=== PATIENT | male | born 1950 | race Caucasian/White ===

== ENCOUNTER 2020-05-25 16:09 | Outpatient (CLI) | payer MEDICARE, OTHER, SELFPAY ==
--- NOTE | 2020-05-25 16:19 | XRR_ITS ---
PROCEDURE INFORMATION: Exam: XR Chest, 2 Views Exam date and time: 05/25/2020 4:26 PM Age: 69 years old Clinical indication: Condition or disease; Lung condition and disease; Other: Pulmonary sarcoidosis TECHNIQUE: Imaging protocol: XR of the chest Views: 2 views. COMPARISON: No relevant prior studies available. FINDINGS: Lungs: There is a parenchymal density present in the right middle lobe lateral segment consistent with pneumonia Pleural space: Unremarkable. No pleural effusion. No pneumothorax. Heart/Mediastinum: Unremarkable. No cardiomegaly. Bones/joints: Unremarkable. XR/XR chest 2V* [id number] IMPRESSION: Right middle lobe pneumonia Otherwise negative chest examination
[2020-05-25 17:22] LABS: 25 Hydroxy Vitamin D 21 ng/mL (30-100)
[2020-05-25 17:55] LABS: Calcium 9.6 mg/dL (8.5-10.5); Parathyroid Hormone 35.7 pg/mL (15-65)
[2020-05-27 10:06] LABS: Angiotensin Converting Enzyme 17 U/L (9-67)
[2020-05-27 10:46] LABS: Total Volume Urine 1450 ml
[2020-05-27 10:59] LABS: Calcium 24 Hour Urine 396 mg/24hr (100-300); Urine Calcium Result 27.3 mg/dL
[2020-06-02 01:25] LABS: Vit D 1,25 (Oh)2, Total 51 pg/mL (18-72); Vit D2 1,25 (Oh)2 <8 pg/mL; Vit D3 1,25 (Oh)2 51 pg/mL
== END 2020-05-25 16:10 | disposition home or self-care (01) ==
LOC: RAD 16:15
PROVIDERS: Internal Medicine Critical Care Medicine; Family Provider Nurse Practitioner; PCP Nurse Practitioner; Visit Provider Internal Medicine Cardiovascular Disease
DX: D86.0 Sarcoidosis of lung (principal); J18.9 Pneumonia, unspecified organism
CPT/HCPCS: 36415; 71046; 82164; 82306; 82310; 82340; 82652; 83970

== ENCOUNTER 2020-06-02 08:25 | Outpatient (CLI) | payer MEDICARE, OTHER, SELFPAY ==
--- NOTE | 2020-06-02 08:56 | USCV_ITS ---
Rojelio Tomlin Age: 69 Gender: M : 1950 Exam Date: 06/02/2020 09:04 Ordering Phys: Kimberly Salvador MD [email or web address]) Technologist: Alonso Robbins Exam Location: [facility] – [place] Indication: PER EFF BP: 140 / 80 HR: 63 Rhythm: Sinus Technical Quality: Good MEASUREMENTS (Male / Female) Normal Values 2D ECHO LV Diastolic Diameter PLAX 2.4 cm 4.2 - 5.9 / 3.9 - 5.3 cm LV Systolic Diameter PLAX 1.3 cm IVS Diastolic Thickness 2.0 cm 0.6 - 1.0 / 0.6 - 0.9 cm IVS Systolic Thickness 1.6 cm LVPW Diastolic Thickness 1.2 cm 0.6 - 1.0 / 0.6 - 0.9 cm LVPW Systolic Thickness 1.4 cm LVOT Diameter 2.0 cm LV Ejection Fraction 2D Teich 80.7 % LV Ejection Fraction MOD 2C 62.4 % LV Ejection Fraction 2C AL 63.8 % LA Diameter 4.9 cm LA Width 3.4 cm LA Height 4.2 cm RA Width 3.4 cm RA Height 5.0 cm M-MODE LV Diastolic Diameter MM 5.6 cm 4.2 - 5.9 / 3.9 - 5.3 cm LV Systolic Diameter MM 3.1 cm LV Ejection Fraction MM Teich 76.4 % IVS Diastolic Thickness MM 1.3 cm 0.6 - 1.0 / 0.6 - 0.9 cm IVS Systolic Thickness MM 2.0 cm LVPW Diastolic Thickness MM 1.6 cm 0.6 - 1.0 / 0.6 - 0.9 cm LVPW Systolic Thickness MM 2.0 cm RV Diastolic Diameter MM 1.7 cm Aortic Annulus Diameter 3.6 cm LA Ao Ratio MM 1.4 MV E Point Septal Separation 1.4 cm DOPPLER MV Area PHT 3.6 cm squared Mitral E to A Ratio 0.9 MV E' Velocity 59.0 cm/s FINDINGS Left Ventricle Normal left ventricular cavity size. Normal left ventricular systolic function. Left ventricular ejection fraction is estimated at 60 %. No regional wall motion abnormalities. Right Ventricle Normal right ventricular size and systolic function. Right Atrium Normal right atrial size. Left Atrium Mildly increased left atrial size. Mitral Valve Mildly thickened mitral valve. Trace mitral valve regurgitation. Aortic Valve Aortic valve not well visualized. Tricuspid Valve Structurally normal tricuspid valve. Trace to mild tricuspid valve regurgitation. Pulmonic Valve Pulmonic valve not well visualized. Pericardium Small to moderate circumferential pericardial effusion (more along left ventricular wall). No evidence of hemodynamic compromise. Aorta Normal sized aortic root. CONCLUSIONS 1. Normal left ventricular cavity size and systolic function. Left ventricular ejection fraction is estimated at 60 %. No regional wall motion abnormalities. 2. Normal right ventricular size and systolic function. 3. Mildly increased left atrial size. 4. When compared to previous echocardiogram dated 01/31/2019, pericardial effusion seems to have decreased somewhat. Kimberly Salvador MD (Electronically Signed) Final Date: 03 June 2020 13:40 S
== END 2020-06-02 08:26 | disposition home or self-care (01) ==
LOC: US 08:26
PROVIDERS: PCP Nurse Practitioner; Visit Provider Internal Medicine Cardiovascular Disease
DX: I31.3 Pericardial effusion (noninflammatory) (principal)
CPT/HCPCS: 93308

== ENCOUNTER 2020-06-08 08:01 | Outpatient (CLI) | payer MEDICARE, OTHER, SELFPAY ==
--- NOTE | 2020-06-08 09:30 | CT_ITS ---
WS: [id number] CT CHEST WITHOUT INTRAVENOUS CONTRAST HISTORY: Pulmonary infiltrate, sarcoidosis. TECHNIQUE: Contiguous 5 mm axial imaging performed on the thorax. Coronal and sagittal reformats are submitted. All CT scans at [facility] use at least one of these dose optimization techniq ues: automated exposure control; mA and/or kV adjustment per patient size (includes targeted exams wh ere dose is matched to clinical indication); or iterative reconstruction. CONTRAST: None DLP: 794.44 mGy.cm COMPARISON: 05/29/2018 and 05/25/2020 Lungs and central airway: Recently described opacification in the RIGHT middle lobe persists. Consoli dation has slightly improved since the radiograph. Continued interstitial thickening and atelectasis involving a portion of the middle lobe. Additional bilateral pulmonary nodules and perilymphatic micronodules are similar to 05/29/2018. There is a nodul e at the LEFT lung base measuring 7 mm which is stable. Additional scattered nodules in the upper sarah g rosraio are also stable. Pleura: Normal. No pleural effusion. Heart and pericardium: Cardiac chambers are normal size. There is a moderate-sized pericardial effusi on with a maximum diameter of 10 mm which has progressed since 05/29/2018. Mediastinum and vanna: Extensive mediastinal and hilar lymphadenopathy. Several of these lymph nodes c ontain calcifications centrally which are benign. There are large cystic clusters of lymph nodes. Vessels: Mild atherosclerosis aorta. Pulmonary artery size is equal to the aorta. Chest wall and lower neck: No soft tissue masses. Upper abdomen: Mild hepatic steatosis. Visualized gallbladder and other upper abdominal structures ar e negative. Acute process. Osseous structures: Increase in thoracic kyphosis. Mild anterior wedging of T11. No osteoblastic or o steolytic disease. Several remote healed rib fractures in the LEFT lateral thorax. CT/CT chest wo con [id number] IMPRESSION: 1. Partial atelectasis RIGHT middle lobe with increased pulmonary opacificatio n, slightly improved since the radiograph of 05/25/2020. New since 05/29/2018. 2. Bilateral hilar lymphadenopathy with numerous perilymphatic micronodules an d pulmonary nodules which are stable since 05/29/2018. Consistent with history o f sarcoidosis. 3. Moderate circumferential pericardial effusion. Increased in size since 05/29.
--- NOTE | 2020-06-08 14:19 | PFTS_ITS ---
Date of Study:06/08/20 Date of Dictation: MECHANICS: Forced vital capacity (FVC) is reduced. Forced expiratory volume in one second (FEV1) is reduced. FEV1/FVC is reduced. FLOW VOLUME LOOP: Reduced flow at all lung volumes with scooping. LUNG VOLUMES: Total lung capacity (TLC) is reduced. Residual volume (RV) is normal. DIFFUSING CAPACITY FOR CARBON MONOXIDE: Normal. 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 The patient has moderate obstruction and mild restriction. There is no significant postbronchodilator response. Lung volumes are consistent with mild restriction. Gas exchange (DLCO) is normal. MTDD
== END 2020-06-08 08:02 | disposition home or self-care (01) ==
PROVIDERS: PCP Nurse Practitioner; Visit Provider Internal Medicine Critical Care Medicine
DX: R91.8 Other nonspecific abnormal finding of lung field (principal); D86.0 Sarcoidosis of lung; J98.11 Atelectasis; R59.1 Generalized enlarged lymph nodes; I31.3 Pericardial effusion (noninflammatory)
CPT/HCPCS: 71250; 94060; 94726; 94729; J7611

== ENCOUNTER → 2020-12-23 10:04 | Outpatient (BNVA) | payer MEDICARE, OTHER, SELFPAY | PROVIDERS: PCP Nurse Practitioner; Visit Provider Internal Medicine Critical Care Medicine | DX: Z20.822 Contact with and (suspected) exposure to COVID-19 (principal); D86.0 Sarcoidosis of lung | CPT/HCPCS: 87635 ==

== ENCOUNTER 2020-12-27 09:18 | Outpatient (CLI) | payer MEDICARE, OTHER, SELFPAY ==
--- NOTE | 2020-12-27 09:30 | USCV_ITS ---
Rojelio Tomlin Age: 70 Gender: M : 1950 Exam Date: 12/27/2020 09:32 Ordering Phys: Kimberly Salvador MD ([email or web address]) Technologist: Glory Spears Exam Location: [facility] – [place] Indication: BP: / HR: 66 Rhythm: Sinus Technical Quality: Adequate MEASUREMENTS (Male / Female) Normal Values 2D ECHO LV Diastolic Diameter PLAX 4.7 cm 4.2 - 5.9 / 3.9 - 5.3 cm LV Systolic Diameter PLAX 3.2 cm LV Chamber Size 3.5 cm IVS Diastolic Thickness 1.2 cm 0.6 - 1.0 / 0.6 - 0.9 cm IVS Systolic Thickness 1.8 cm LVPW Diastolic Thickness 1.6 cm 0.6 - 1.0 / 0.6 - 0.9 cm LVPW Systolic Thickness 1.5 cm RV Chamber Size 3.8 cm LVOT Diameter 2.0 cm LV Ejection Fraction 2D Teich 61.7 % LV Ejection Fraction MOD 2C 50.6 % LV Ejection Fraction 2C AL 52.1 % LA Diameter 4.0 cm LA Width 2.6 cm LA Height 3.3 cm RA Width 2.9 cm RA Height 3.9 cm Aorta at Sinotubular Diameter 3.0 cm M-MODE LV Diastolic Diameter MM 4.8 cm 4.2 - 5.9 / 3.9 - 5.3 cm LV Systolic Diameter MM 2.7 cm LV Ejection Fraction MM Teich 75.0 % IVS Diastolic Thickness MM 1.7 cm 0.6 - 1.0 / 0.6 - 0.9 cm IVS Systolic Thickness MM 1.9 cm LVPW Diastolic Thickness MM 1.3 cm 0.6 - 1.0 / 0.6 - 0.9 cm LVPW Systolic Thickness MM 2.0 cm RV Diastolic Diameter MM 2.0 cm Aortic Annulus Diameter 3.7 cm LA Ao Ratio MM 1.2 DOPPLER AV Peak Velocity 144.0 cm/s LVOT Peak Velocity 80.0 cm/s AV Area Cont Eq vti 2.2 cm squared AV Area Cont Eq pk 1.7 cm squared MV Area PHT 3.1 cm squared Mitral E to A Ratio 1.1 MV E' Velocity 41.5 cm/s Mitral E to MV E' Ratio 8.8 Mitral E to LV E' Lateral Ratio 9.2 Mitral E to LV E' Septal Ratio 8.6 TR Peak Velocity 134.9 cm/s TR Peak Gradient 7.3 mmHg TR Mean Velocity 100.9 cm/s TR Mean Gradient 4.3 mmHg TR Velocity Time Integral 33.6 cm TV Peak E Velocity 56.0 cm/s Right Atrial Pressure 3.0 mmHg Pulmonary Artery Systolic Pressu 10.3 mmHg PV Peak Velocity 69.0 cm/s RV Acceleration Time 0.1 s RV Ejection Time 0.3 s RV AcT/ET 0.4 FINDINGS Left Ventricle Normal left ventricular cavity size. Moderate concentric left ventricular hypertrophy. Normal left ventricular systolic function. Left ventricular ejection fraction is estimated at 60 %. No diagnostic regional wall motion abnormality. Normal diastolic function. Right Ventricle Normal right ventricular size and systolic function. Right ventricular systolic pressure 10.3 mmHg. Right Atrium Normal right atrial size. Right atrial pressure estimated at 3 mm Hg.. Left Atrium Mildly increased left atrial size. Mitral Valve Structurally normal mitral valve. Trace mitral valve regurgitation. Aortic Valve Mildly thickened trileaflet aortic valve. No aortic valve stenosis. No aortic valve regurgitation. Tricuspid Valve Structurally normal tricuspid valve. Trace tricuspid valve regurgitation. Pulmonic Valve Pulmonic valve not well visualized. Pericardium Small pericardial effusion. No evidence of hemodynamic compromise. Aorta Normal size aortic root and proximal ascending aorta. CONCLUSIONS 1. Normal left ventricular cavity size. Moderate concentric left ventricular hypertrophy. Normal left ventricular systolic function. Left ventricular ejection fraction is estimated at 60 %. No diagnostic regional wall motion abnormality. Normal diastolic function. 2. Normal pulmonary artery pressure. 3. Small pericardial effusion. No evidence of hemodynamic compromise. 4. When compared to previous echocardiogram dated 06/02/2020, pericardial effusion has decreased in size. Kimberly Salvador MD (Electronically Signed) Final Date: 29 December 2020 16:26 S
--- NOTE | 2020-12-27 13:03 | PFTS_ITS ---
Date of Study:12/27/20 Date of Dictation: MECHANICS: Forced vital capacity (FVC) is normal. Forced expiratory volume in one second (FEV1) is normal. FEV1/FVC is normal. FLOW VOLUME LOOP: Normal. LUNG VOLUMES: Not measured DIFFUSING CAPACITY FOR CARBON MONOXIDE: Normal INTERPRETATION: The prebronchodilator spirometry is normal. Gas exchange is normal. MTDD
== END 2020-12-27 09:19 | disposition home or self-care (01) ==
LOC: US 09:20
PROVIDERS: PCP Nurse Practitioner; Visit Provider Internal Medicine Cardiovascular Disease
DX: D86.0 Sarcoidosis of lung (principal); I31.3 Pericardial effusion (noninflammatory)
CPT/HCPCS: 93306; 94010; 94729

== ENCOUNTER → 2021-09-20 08:10 | Outpatient (BNVA) | payer MEDICARE, OTHER, SELFPAY | PROVIDERS: PCP Family Medicine; Visit Provider Internal Medicine Critical Care Medicine | DX: Z20.822 Contact with and (suspected) exposure to COVID-19 (principal); D86.0 Sarcoidosis of lung | CPT/HCPCS: 87635 ==

== ENCOUNTER 2021-09-27 08:03 | Outpatient (CLI) | payer MEDICARE, OTHER, SELFPAY ==
--- NOTE | 2021-09-27 13:19 | PFTS_ITS ---
Date of Study:09/27/21 Date of Dictation: MECHANICS: Forced vital capacity (FVC) is reduced. Forced expiratory volume in one second (FEV1) is reduced. FEV1/FVC is reduced. FLOW VOLUME LOOP: Reduced flow at all lung volumes with scooping. LUNG VOLUMES: Not measured DIFFUSING CAPACITY FOR CARBON MONOXIDE: Normal. INTERPRETATION: The prebronchodilator spirometry is consistent with moderate obstruction. No postbronchodilator spirometry was performed. A component of restrictive lung disease cannot be ruled out in the absence of lung volume measurements. Gas exchange (DLCO) is normal. MTDD
== END 2021-09-27 08:04 | disposition home or self-care (01) ==
PROVIDERS: PCP Family Medicine; Visit Provider Internal Medicine Critical Care Medicine
DX: D86.0 Sarcoidosis of lung (principal)
CPT/HCPCS: 94010; 94729

== ENCOUNTER → 2022-01-30 13:36 | Outpatient (BNVA) | payer MEDICARE, OTHER, SELFPAY | PROVIDERS: PCP Family Medicine; Visit Provider Internal Medicine Critical Care Medicine | DX: D86.0 Sarcoidosis of lung (principal); E11.9 Type 2 diabetes mellitus without complications; I10 Essential (primary) hypertension | CPT/HCPCS: 99214 ==

== ENCOUNTER 2022-03-08 10:29 | Outpatient (CLI) | payer MEDICARE, OTHER, SELFPAY ==
--- NOTE | 2022-03-08 13:51 | PFTS_ITS ---
Date of Study:03/08/22 Date of Dictation: MECHANICS: Forced vital capacity (FVC) is reduced. Forced expiratory volume in one second (FEV1) is reduced. FEV1/FVC is normal. FLOW VOLUME LOOP: Reduced flow at all lung volumes with mild scooping. LUNG VOLUMES: Total lung capacity (TLC) is not measured. Residual volume (RV) is not measured. DIFFUSING CAPACITY FOR CARBON MONOXIDE: Normal. INTERPRETATION: The postbronchodilator spirometry is consistent with mild restriction. There is no significant postbronchodilator response. Lung volumes are not measured. Gas exchange (DLCO) is . MTDD
== END 2022-03-08 10:30 | disposition home or self-care (01) ==
LOC: RT 10:32
PROVIDERS: PCP Family Medicine; Visit Provider Internal Medicine Critical Care Medicine
DX: D86.0 Sarcoidosis of lung (principal)
CPT/HCPCS: 94060; 94729; J7611

== ENCOUNTER → 2022-04-03 09:38 | Outpatient (BNVA) | payer MEDICARE, OTHER, SELFPAY | PROVIDERS: PCP Family Medicine; Visit Provider Internal Medicine Critical Care Medicine | DX: D86.0 Sarcoidosis of lung (principal); E11.8 Type 2 diabetes mellitus with unspecified complications; I10 Essential (primary) hypertension | CPT/HCPCS: 99214 ==

== ENCOUNTER → 2022-08-01 10:30 | Outpatient (BNVA) | payer MEDICARE, OTHER, SELFPAY | PROVIDERS: PCP Family Medicine; Visit Provider Family Medicine | DX: E11.9 Type 2 diabetes mellitus without complications (principal); I10 Essential (primary) hypertension | CPT/HCPCS: 80053; 80061; 82607; 83036 ==

== ENCOUNTER → 2022-08-09 09:11 | Outpatient (BNVA) | payer MEDICARE, OTHER, SELFPAY | PROVIDERS: PCP Family Medicine; Visit Provider Internal Medicine Critical Care Medicine | DX: D86.0 Sarcoidosis of lung (principal); Z79.52 Long term (current) use of systemic steroids | CPT/HCPCS: 99213 ==

== ENCOUNTER 2022-08-18 06:27 | Emergency (ER) | payer MEDICARE, OTHER, SELFPAY ==
[2022-08-18 06:39] VITALS: BP 174/86; PULSE 71; RESP 18; TEMP 36.3; O2SAT 98; BMI 33.0
--- NOTE | 2022-08-18 06:40 | ED_ITS ---
HPI - Abdominal Pain General: Chief Complaint: Abdominal Pain Stated Complaint: Abd pain Time Seen by Provider: 08/18/22 06:29 Source: patient Mode of arrival: ambulatory Limitations: no limitations History of Present Illness: 71-year-old male presents emergency room complaining of abdominal pain. Began 4 to 5 days ago got much worse in the last 2 days. He has not been able to have a bowel movement or passing gas for the last 2 days. Denies any dysuria urgency or frequency no hematochezia or melena. 2 days ago he had a small amount of liquid stool and since then nothing has been very bloated. He is not had any vomiting. He did run a little bit of a low-grade fever earlier this week. At the time of presentation he does not have a fever. He has history of diabetes mellitus and is on prednisone and metformin. He has no known history of diverticulitis. Denies chest pain denies hematemesis or coffee-ground emesis. No hematuria no dysuria urgency or frequency. No history of nephrolithiasis MD elicited complaint: abdominal pain Pertinent past history: none Onset (ago): day(s) (2) Pain Consistency: constant Location: LLQ Severity: moderate Quality: cramping Radiation: none Migration to: no migration Exacerbating factors: nothing Relieving factors: eating and bowel movement Associated Symptoms: Reports GI cramping, nausea and poor appetite; Denies anorexia, belching, bloating, change in bowel habits, change in stool character, chills, coffee ground emesis, constipation, diarrhea, dyspepsia, dysuria, excessive flatus, fever(s), heartburn, hematochezia, hematuria, hematemesis, fecal incontinence, loose stools, melena, syncope and vomiting Review of Systems Const: Denies: fever(s) or chills ENMT: Denies: throat pain, ear or mastoid pain, nasal discharge or nasal congestion Card: Denies: syncope Resp: Denies: dyspnea, productive cough or non-productive cough GI: Reports: nausea and GI cramping; Denies: vomiting, hematemesis, coffee ground emesis, heartburn, diarrhea, constipation, bloating, belching, excessive flatus, fecal incontinence, change in bowel habits, change in stool character, hematochezia or melena : Denies: dysuria or hematuria Skin/Breast: Denies: rash or pruritus PFSH ED PFSH: Medical History Diabetes mellitus Hypertension Pericardial effusion Sarcoidosis of lung Surgical History No pertinent past surgical history Family History Mother Cancer, Onset Age: 76 Father Aneurysm, Onset Age: 60 Social History Smoking and tobacco status: never smoked Second hand smoke exposure: No Alcohol intake: current Alcohol intake frequency: few times a month Lives independently: Yes Household members: spouse Housing: House Marital status: Current occupational status: retired Current occupational exposures/hazards: No Pets and animals: Yes History of recent travel: No Current gender identity: Male Physical Exam Const: COMMON NORMALS: no acute distress GENERAL APPEARANCE: cooperative a nd comfortable ORIENTATION/CONSCIOUSNESS: Yes awake, Yes oriented to person, Yes oriented to place and Yes oriented to time HENMT: COMMON NORMALS: normocephalic, atraumatic and hearing grossly normal bilaterally HEAD & SCALP: normocephalic and atraumatic Resp: COMMON NORMALS: normal respiratory effort, No retractions, No use of accessory muscles and clear to auscultation bilaterally AUSCULTATION: clear to auscultation bilaterally Cardio: COMMON NORMALS: regular rate, regular rhythm and No murmurs present (Cardio) RATE: regular rate RHYTHM: regular rhythm GI: COMMON NORMALS: Soft to palpation AUSCULTATION: Yes High-pitched bowel sounds present PALPATION: Yes Soft to palpation, Yes Tenderness to palpation present (GI) Details: LLQ and No Guarding due to palpation present (GI) PERCUSSION: tympanic to percussion Extremity: COMMON NORMALS: normal to inspection, capillary refill normal, no clubbing, cyanosis or edema, no calf tenderness and no pedal edema Neuro: SENSORIUM/ORIENTATION: Yes oriented to person, Yes oriented to place and Yes oriented to time Skin: COMMON NORMALS: no rashes or lesions noted GENERAL SKIN EXAM: no rashes or lesions noted Course Vital Signs: Vital signs: Vital Signs Temperature 97.3 F L 08/18/22 06:39 Pulse Rate 72 09/30/22 09:00 Respiratory Rate 18 08/18/22 09:45 Blood Pressure 136/75 08/18/22 09:00 Pulse Oximetry 100 08/18/22 09:45 Oxygen Delivery Me thod 08/18/22 06:49 MDM - Abdominal Pain Medical Decision Making Pain well controlled discharged home with hydrocodone tamsulosin strain urine follow-up with urology Medical Records I reviewed the patient's medical records. Lab Data I reviewed the patient's lab results. : 08/18/22 06:40 08/18/22 06:40 Labs/Radiology: Radiology Impressions Abdomen/Pelvis CT 08/18/22 06:50 IMPRESSION: 1. Obstructive 5.2 mm stone at the left ureterovesical junction with mild resultant hydronephrosis and perinephric stranding. 2. Findings suspicious for a nonspecific colitis. Correlate clinically. 3. The appendix is mildly prominent measuring up to 1.1 cm in thickness. No significant periappendiceal stranding is seen suggest acute appendicitis. This is felt unlikely to represent acute appendicitis. Correlate clinically. 4. Cardiomegaly with moderate pericardial effusion and coronary artery disease. 5. Multiple pulmonary nodules at the lung bases appear grossly similar to prior. This could reflect indolent atypical infection such as mycobacterium avium intracellulare or fungal infection. Sarcoidosis is a consideration. There is worsening scarring or subsegmental atelectasis. Recommend CT chest to better compare to prior. 6. The bladder wall is thickened. Considerations include underdistention, partial bladder outlet obstruction or cystitis. Correlate with urinalysis. 7. Enlarged prostate. Correlate with serum PSA. 8. 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 9. Mild periportal lymphadenopathy. Laboratory Results WBC 6.1 10^3/uL (4.0-10.0) 08/18/22 06:40 RBC 4.66 10^6/uL (4.1-5.3) 08/18/22 06:40 Hgb 14.1 g/dL (11.7-16.6) 08/18/22 06:40 Hct 40.6 % (42.0-52.0) L 08/18/22 06:40 MCV 87.1 fl (80-94) 08/18/22 06:40 MCH 30.3 pg (28.0-34.0) 08/18/22 06:40 MCHC 34.7 g/dL (30.0-36.0) 08/18/22 06:40 RDW 11.7 % (12.1-15.1) L 08/18/22 06:40 Plt Count 258 10^3/cmm (130-400) 08/18/22 06:40 MPV 9.1 fL (7.4-10.4) 08/18/22 06:40 Neut % (Auto) 69.1 % 08/18/22 06:40 Lymph % (Auto) 8.4 % 08/18/22 06:40 [place] % (Auto) 21.3 % 08/18/22 06:40 Eos % (Auto) 0.8 % 08/18/22 06:40 Baso % (Auto) 0.2 % 08/18/22 06:40 Neut # (Auto) 4.19 10^3/uL (1.8-7.7) 08/18/22 06:40 Lymph # (Auto) 0.5 10^3/uL (0.8-4.8) L 08/18/22 06:40 [place] # (Auto) 1.3 10^3/uL (0.2-0.9) H 08/18/22 06:40 Eos # (Auto) 0.1 10^3/uL (0.0-0.8) 08/18/22 06:40 Baso # (Auto) 0.0 10^3/uL (0.0-0.1) 08/18/22 06:40 Nucleated RBC % (auto) 0 % 08/18/22 06:40 Nucleated RBCs # 0.0 /100WBC 08/18/22 06:40 Sodium 133 mmol/L (136-145) L 08/18/22 06:40 Potassium 4.5 mmol/L (3.5-5.1) 08/18/22 06:40 Chloride 97 mmol/L (98-107) L 08/18/22 06:40 Carbon Dioxide 24 mmol/L (22-29) 08/18/22 06:40 Anion Gap 16.5 (5-19) 08/18/22 06:40 BUN 20 mg/dL (8-23) 08/18/22 06:40 Creatinine 1.3 mg/dL (0.7-1.2) H 08/18/22 06:40 GFR Calculation 54.7 mL/min (90-130) L 08/18/22 06:40 Glucose 133 mg/dL (65-115) H 08/18/22 06:40 Calculated Osmolality 281 mOsm/kg (285-295) L 08/18/22 06:40 Calcium 8.9 mg/dL (8.5-10.5) 08/18/22 06:40 Total Bilirubin 1.1 mg/dL (0.15-1.2) 08/18/22 06:40 AST 17 U/L (0-40) 08/18/22 06:40 ALT 17 U/L (0-41) 08/18/22 06:40 Alkaline Phosphatase 72 U/L (40-130) 08/18/22 06:40 Total Protein 6.3 g/dL (6.6-8.7) L 08/18/22 06:40 Albumin 3.7 g/dL (3.5-5.2) 08/18/22 06:40 Globulin 2.6 g/dL (1.3-4.6) 08/18/22 06:40 Lipase 34 U/L (13-60) 08/18/22 06:40 Urine Color Yellow (Yellow) 08/18/22 07:46 Urine Appearance Clear (CLEAR) 08/18/22 07:46 Urine pH 6.0 (5-7) 08/18/22 07:46 Ur Specific Cache 1.010 (1.005-1.030) 08/18/22 07:46 Urine Protein Negative 08/18/22 07:46 Urine Glucose (UA) Negative (Normal) 08/18/22 07:46 Urine Ketones Negative (Negative) 08/18/22 07:46 Urine Blood Small (Negative) A 08/18/22 07:46 Urine Nitrate Negative 08/18/22 07:46 Urine Bilirubin Negative (Negative) 08/18/22 07:46 Urine Urobilinogen 0.2 mg/dL (Negative) 08/18/22 07:46 Ur Leukocyte Esterase Negative (Negative) 08/18/22 07:46 Urine RBC 0-4 /hpf (0-2) H 08/18/22 07:46 Urine WBC 0-4 /hpf (0-5) H 08/18/22 07:46 Ur Squamous Epith Cells 0-4 /hpf (0-5) H 08/18/22 07:46 Amorphous Sediment Not Reportable 08/18/22 07:46 Urine Bacteria None /hpf (NONE) 08/18/22 07:46 Discharge Plan Discharge Patient Disposition: Home Clinical Impression: Nephrolithiasis Condition: Stable Prescriptions: New hydrocodone-acetaminophen 5-325 mg tablet 1 tab PO Q6H PRN (Reason: pain) Qty: 25 0RF tamsulosin 0.4 mg capsule 0.4 mg PO DAILY Qty: 20 0RF No Action aspirin 81 mg tablet,chewable 81 mg PO QDAY Saw Hernshaw Complex(pumpk-Zn) [id number] mg capsule 1 cap PO QDAY ipratropium-albuterol 0.5 mg-3 mg(2.5 mg base)/3 mL solution for nebulization 3 ml inhalation Q4H PRN (Reason: wheezing) Qty: 360 3RF metformin 1,000 mg tablet 1,000 mg PO QDAY Qty: 90 0RF glipizide 5 mg tablet extended release 24hr 5 tab PO DAILY albuterol sulfate [Ventolin HFA] 90 mcg/actuation HFA aerosol inhaler 2 puff INHALATION Q4H PRN (Reason: shortness of breath or wheezing) Qty: 18 3RF lisinopril 20 mg tablet 20 mg PO QDAY Qty: 90 3RF prednisone 2.5 mg tablet 2.5 mg PO DAILY Qty: 90 2RF Rx Instructions: Start 2.5 mg after 3 weeks of 5 mg completed. Arnuity Ellipta 100 mcg/actuation blister with device 1 inh inhalation DAILY Qty: 30 3RF atorvastatin 10 mg tablet 10 mg PO DAILY amlodipine 5 mg tablet 5 mg PO DAILY ketoconazole 2 % cream 1 applic topical BID PRN (Reason: Rash) Rx Instructions: apply to red, scaly areas on face 1-2 times daily Discharge Orders: Discharge ED (Routine); Ordered 08/18/22 Ordered By: Shine Jaime Referrals: Ross Mayen DO [Primary Care Provider] - Discharge Diet: Usual diet Discharge Activity: Increase activity as tolerated Patient Instructions: Opioid Safety, Pain Management Activity Restrictions/Additional Instructions: Drain urine to collect stone. Case management make arrangements for follow-up with Dr. Espinoza. If pain is uncontrolled return to the emergency room. Coding Level of Care Code ED Soft Tile Setter for [place] Fwd Exam Detailed
[2022-08-18 06:49] VITALS: BP 174/86; PULSE 72; RESP 18; O2SAT 97
--- NOTE | 2022-08-18 06:50 | CTR_ITS ---
PROCEDURE INFORMATION: Exam: CT Abdomen And Pelvis Without Contrast Exam date and time: 08/18/2022 6:58 AM Age: 71 years old Clinical indication: Left-sided abdominal pain. TECHNIQUE: Imaging protocol: Computed tomography of the abdomen and pelvis without contrast. Radiation optimization: All CT scans at this facility use at least one of these dose optimization techniques: automated exposure control; mA and/or kV adjustment per patient size (includes targeted exams where dose is matched to clinical indication); or iterative reconstruction. COMPARISON: CT chest con [id number] 06/08/2020 8:43 AM RADIATION DOSE METRICS: Total DLP (mGy-cm): 848.09 FINDINGS: Lungs: There is subsegmental atelectasis and scarring at the lung bases. There are multiple pulmonary nodules at the lung bases. One of the larger nodules measures 1.1 cm; similar to prior. Pleural spaces: Small left pleural effusion. Heart: The heart is enlarged. Moderate pericardial effusion. No hiatal hernia. Coronary arterial calcifications are seen. Liver: The liver is unremarkable. Gallbladder and bile ducts: The gallbladder is unremarkable. Pancreas: The pancreas is unremarkable. Spleen: The spleen is unremarkable. Adrenal glands: The adrenal glands are unremarkable. Kidneys and ureters: There is an obstructive 5.2 mm stone at the left ureterovesical junction with mild resultant hydronephrosis and perinephric stranding. Stomach and bowel: The stomach and small bowel are unremarkable. There is fluid noted throughout much of the colon, and there is mild prominence of the wall of the descending colon. These findings are suspicious for a nonspecific colitis. Appendix: The appendix is mildly prominent measuring up to 1.1 cm in thickness. No significant periappendiceal stranding is seen suggest acute appendicitis. Correlate clinically. Intraperitoneal space: No free intraperitoneal air is seen. Vasculature: No abdominal aortic aneurysm. Lymph nodes: Calcified epicardial lymph node. A periportal lymph node measures 1.4 x 2.3 cm. Urinary bladder: The bladder wall is thickened. This may reflect underdistention, partial bladder outlet obstruction or cystitis. Correlate with urinalysis. Reproductive: The prostate measures 5.3 x 5.8 cm. Bones/joints: There are old bilateral pars interarticularis fractures at L5 with grade 1 anterolisthesis of L5. No acute fracture is seen. Soft tissues: Small fat containing left inguinal hernia. Small fat containing umbilical hernia. CT/CT abdomen pelvis wo con [id number] IMPRESSION: 1. Obstructive 5.2 mm stone at the left ureterovesical junction with mild resultant hydronephrosis and perinephric stranding. 2. Findings suspicious for a nonspecific colitis. Correlate clinically. 3. The appendix is mildly prominent measuring up to 1.1 cm in thickness. No significant periappendiceal stranding is seen suggest acute appendicitis. This is felt unlikely to represent acute appendicitis. Correlate clinically. 4. Cardiomegaly with moderate pericardial effusion and coronary artery disease. 5. Multiple pulmonary nodules at the lung bases appear grossly similar to prior. This could reflect indolent atypical infection such as mycobacterium avium intracellulare or fungal infection. Sarcoidosis is a consideration. There is worsening scarring or subsegmental atelectasis. Recommend CT chest to better compare to prior. 6. The bladder wall is thickened. Considerations include underdistention, partial bladder outlet obstruction or cystitis. Correlate with urinalysis. 7. Enlarged prostate. Correlate with serum PSA. 8. 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 9. Mild periportal lymphadenopathy.
[2022-08-18 06:55] LABS: Basophils % 0.2 %; Eosinophils # 0.1 10^3/uL (0.0-0.8); Eosinophils % 0.8 %; Hematocrit 40.6 % (42.0-52.0); Hemoglobin 14.1 g/dL (11.7-16.6); Lymphocytes # 0.5 10^3/uL (0.8-4.8); Lymphocytes % 8.4 %; Mean Corpuscular HGB Conc 34.7 g/dL (30.0-36.0); Mean Corpuscular Hemoglobin 30.3 pg (28.0-34.0); Mean Corpuscular Volume 87.1 fl (80-94); Mean Platelet Volume 9.1 fL (7.4-10.4); Monocytes # 1.3 10^3/uL (0.2-0.9); Monocytes % 21.3 %; Neutrophils # 4.19 10^3/uL (1.8-7.7); Neutrophils % 69.1 %; Nucleated Red Blood Cells % 0 %; Platelet Count 258 10^3/cmm (130-400); Red Blood Count 4.66 10^6/uL (4.1-5.3); Red Cell Distribution Width 11.7 % (12.1-15.1); White Blood Count 6.1 10^3/uL (4.0-10.0)
[2022-08-18 07:29] LABS: Alanine Aminotransferase 17 U/L (0-41); Albumin Level 3.7 g/dL (3.5-5.2); Alkaline Phosphatase 72 U/L (40-130); Anion Gap 16.5 (5-19); Aspartate Amino Transferase 17 U/L (0-40); Blood Urea Nitrogen 20 mg/dL (8-23); Calcium 8.9 mg/dL (8.5-10.5); Carbon Dioxide 24 mmol/L (22-29); Chloride 97 mmol/L (98-107); Globulin 2.6 g/dL (1.3-4.6); Glomerular Filtration Rate 54.7 mL/min (90-130); Glucose 133 mg/dL (65-115); Lipase 34 U/L (13-60); Osmolality Calculated 281 mOsm/kg (285-295); Potassium 4.5 mmol/L (3.5-5.1); Sodium 133 mmol/L (136-145); Total Bilirubin 1.1 mg/dL (0.15-1.2); Total Protein 6.3 g/dL (6.6-8.7)
[2022-08-18 08:00] VITALS: BP 132/76; PULSE 68; RESP 20; O2SAT 97
[2022-08-18 08:44] LABS: Bilirubin Urine Negative (Negative); Blood Urine Small (Negative); Glucose Urine UA Negative (Normal); Ketones Urine Negative (Negative); Leukocyte Esterase Urine Negative (Negative); Nitrate Urine Negative; Protein Urine Negative; Urine Appearance Clear (CLEAR); Urine Color Yellow (Yellow); Urobilinogen Urine 0.2 mg/dL (Negative)
[2022-08-18 08:50] LABS: Add Urine Microscopic? YES
[2022-08-18 08:51] LABS: Add Urine Culture? No; RBC Urine 0-4 /hpf (0-2); Squamous Epithelial Cell Urine 0-4 /hpf (0-5); WBC Urine 0-4 /hpf (0-5)
[2022-08-18 09:00] VITALS: BP 136/75; PULSE 72; O2SAT 96
[2022-08-18] MEDS: tamsulosin 0.4 mg Capsule PO (09:26)
[2022-08-18 09:45] VITALS: RESP 18; O2SAT 100
[2022-08-18] MEDS: morphine 4 mg/mL SDV 1 mL IVP (09:45)
--- NOTE | 2022-08-18 10:28 | PC.NURSE ---
pt reports improvement of pain to 2/10
--- NOTE | 2022-08-18 13:04 | DCPLANNER ---
Addendum entered by Drea Elam 11/08/22 11:00: Patient had a follow up appointment scheduled with urology - patient did attend appointment. Addendum entered by Drea Elam 08/22/22 05:16: Patient has a follow up appointment scheduled for Sunday, August 30, 2022 at 3:30 with Zuri Grey at urology. Clinic will call patient with appointment information. Original Note: assistant manager bilingual had message to schedule a follow up appointment for patient with urology. assistant manager bilingual sent patients information to the front office staff at urology. Patients information will be printed and reviewed. Clinic will call patient with appointment information.
== END 2022-08-18 11:49 | disposition home or self-care (01) ==
PROVIDERS: Emergency Provider Family Medicine; PCP Family Medicine
DX: N13.2 Hydronephrosis with renal and ureteral calculous obstruction (principal); E11.9 Type 2 diabetes mellitus without complications; I10 Essential (primary) hypertension; Z79.52 Long term (current) use of systemic steroids; Z79.84 Long term (current) use of oral hypoglycemic drugs; Z79.82 Long term (current) use of aspirin
CPT/HCPCS: 74176; 80053; 81001; 83690; 85025; 96374; 99284; J2270

== ENCOUNTER → 2022-08-22 10:32 | Outpatient (BNVA) | payer MEDICARE, OTHER, SELFPAY | PROVIDERS: PCP Family Medicine; Visit Provider Nurse Practitioner Family | DX: N20.0 Calculus of kidney (principal); N40.0 Benign prostatic hyperplasia without lower urinary tract symptoms; R19.7 Diarrhea, unspecified | CPT/HCPCS: 74018; 80053; 81003; 82365; 84153; 85025; 87086; 87493; 87506; 88300 ==

== ENCOUNTER 2022-08-30 14:24 | Outpatient (CLI) | payer MEDICARE, OTHER, SELFPAY ==
--- NOTE | 2022-08-30 14:30 | XR_ITS ---
WS: [id number] KUB, AP view, 08/30/2022 KUB, 08/22/2022. Clinical Data: STONES Comparison: None. Findings: No abnormal intraabdominal masses or calcifications are seen. There is no dilatated small bowel or ev idence of obstruction. There is fecal material and bowel gas throughout the abdomen. The bladder is partly full. There is os teoarthritic change of the lumbar vertebral bodies. XR/XR KUB [id number] Impression: Negative KUB.
== END 2022-08-30 14:25 | disposition home or self-care (01) ==
LOC: RAD 14:26
PROVIDERS: PCP Family Medicine; Visit Provider Nurse Practitioner Family
DX: N20.0 Calculus of kidney (principal)
CPT/HCPCS: 74018; 81003; 99203

== ENCOUNTER → 2022-11-03 11:19 | Outpatient (BNVA) | payer MEDICARE, OTHER, SELFPAY | PROVIDERS: PCP Family Medicine; Visit Provider Internal Medicine Cardiovascular Disease | DX: I10 Essential (primary) hypertension (principal); R06.02 Shortness of breath; I31.39 Other pericardial effusion (noninflammatory); D86.0 Sarcoidosis of lung | CPT/HCPCS: 99214 ==

== ENCOUNTER → 2023-01-25 13:13 | Outpatient (BNVA) | payer MEDICARE, OTHER, SELFPAY | PROVIDERS: PCP Family Medicine; Visit Provider Family Medicine | DX: D86.0 Sarcoidosis of lung (principal); E11.9 Type 2 diabetes mellitus without complications; I10 Essential (primary) hypertension | CPT/HCPCS: 80053; 80061; 82607; 83036; 85025 ==

== ENCOUNTER → 2023-02-08 09:38 | Outpatient (BNVA) | payer MEDICARE, OTHER, SELFPAY | PROVIDERS: PCP Family Medicine; Visit Provider Internal Medicine Pulmonary Disease | DX: D86.0 Sarcoidosis of lung (principal); Z79.52 Long term (current) use of systemic steroids | CPT/HCPCS: 99214 ==

== ENCOUNTER 2023-03-01 13:54 | Outpatient (CLI) | payer MEDICARE, OTHER, SELFPAY ==
--- NOTE | 2023-03-01 14:00 | CT_ITS ---
WS: [id number] CT CHEST TECHNIQUE: Noncontrast CT of the chest with coronal and sagittal reformatted images. CLINICAL INFORMATION: check for progression of sarcoidosis COMPARISON: None. DLP: 371.[address] scans at [facility] use at least one of these dose optimization techniques: automated e xposure control; mA and/or kV adjustment per patient size (includes targeted exams where dose is matc hed to clinical indication); or iterative reconstruction. FINDINGS: Moderate pericardial effusion. Aortic calcification. Coronary calcification. Stable AP window, medias tinal, peribronchial and subcarinal lymph nodes. Stable calcified hilar lymph nodes. Normal GE junction. Adrenal glands are normal. Splenic artery calcification. No axillary lymphadenopa thy. Bilateral bronchovascular thickening. Soft tissue thickening along the RIGHT hilum with subsegmental atelectasis RIGHT middle lobe similar in appearance compared to previous. Bilateral perihilar nodular interstitial thickening appears stable. Interstitial thickening with nodularity in the lung bases ap pears stable. Largest nodule LEFT lower lobe measures 7.3 mm unchanged. Lung apices are well aerated. RIGHT lower lobe hazy infiltrates medially have progressed compared to previous. Adrenal glands are normal. Splenic artery calcification. Hypertrophic changes thoracic spine. Chronic LEFT rib fractures. CT/CT chest wo con [id number] IMPRESSION: 1. Subsegmental atelectasis RIGHT middle lobe is stable compared to previous. 2. Changes of sarcoidosis with calcified mediastinal and hilar lymph nodes wit h perilymphatic micronodularity stable. 3. Perilymphatic nodules in the LEFT lower lobe largest measuring 7.3 mm uncha nged. 4. Slightly progressed hazy infiltrates in the RIGHT lower lobe medially sligh tly progressed. 5. Moderate pericardial effusion is stable.
== END 2023-03-01 13:55 | disposition home or self-care (01) ==
LOC: RAD 14:00
PROVIDERS: PCP Family Medicine; Visit Provider Internal Medicine Pulmonary Disease
DX: D86.9 Sarcoidosis, unspecified (principal); J98.11 Atelectasis; I31.39 Other pericardial effusion (noninflammatory)
CPT/HCPCS: 71250

== ENCOUNTER 2023-03-07 12:36 | Outpatient (CLI) | payer MEDICARE, OTHER, SELFPAY ==
[2023-03-07 12:49] VITALS: PULSE 72; RESP 18; O2SAT 96
[2023-03-07] MEDS: albuterol 2.5 mg/3 mL Neb INHALATION (12:49)
[2023-03-07 12:54] VITALS: PULSE 73
[2023-03-07 13:15] VITALS: BP 144/87; BP 156/89
== END 2023-03-07 12:37 | disposition home or self-care (01) ==
LOC: RT 12:37
PROVIDERS: PCP Family Medicine; Visit Provider Internal Medicine Pulmonary Disease
DX: D86.0 Sarcoidosis of lung (principal)
CPT/HCPCS: 94060; 94618; 94726; 94729; J7613

== ENCOUNTER → 2023-03-15 11:24 | Outpatient (BNVA) | payer MEDICARE, OTHER, SELFPAY | PROVIDERS: PCP Family Medicine; Visit Provider Nurse Practitioner Family | DX: L85.3 Xerosis cutis (principal); D22.5 Melanocytic nevi of trunk; L81.4 Other melanin hyperpigmentation; L57.8 Other skin changes due to chronic exposure to nonionizing radiation; L82.1 Other seborrheic keratosis; L57.0 Actinic keratosis; L21.8 Other seborrheic dermatitis; I87.2 Venous insufficiency (chronic) (peripheral) | CPT/HCPCS: 17000; 17003; 99214 ==

== ENCOUNTER → 2023-06-11 08:15 | Outpatient (BNVA) | payer MEDICARE, OTHER, SELFPAY | PROVIDERS: PCP Family Medicine; Visit Provider Internal Medicine Pulmonary Disease | DX: D86.0 Sarcoidosis of lung (principal); Z79.52 Long term (current) use of systemic steroids | CPT/HCPCS: 99214 ==

== ENCOUNTER → 2023-07-24 09:02 | Outpatient (BNVA) | payer MEDICARE, OTHER, SELFPAY | PROVIDERS: PCP Family Medicine; Visit Provider Family Medicine | DX: E11.9 Type 2 diabetes mellitus without complications (principal); I10 Essential (primary) hypertension | CPT/HCPCS: 80053; 82607; 83036; 85025 ==

== ENCOUNTER → 2023-11-02 09:22 | Outpatient (BNVA) | payer MEDICARE, OTHER, SELFPAY | PROVIDERS: PCP Family Medicine; Visit Provider Internal Medicine Cardiovascular Disease | DX: R06.02 Shortness of breath (principal); I10 Essential (primary) hypertension; D86.0 Sarcoidosis of lung; E11.9 Type 2 diabetes mellitus without complications; Z79.84 Long term (current) use of oral hypoglycemic drugs | CPT/HCPCS: 99214 ==

== ENCOUNTER → 2023-12-31 09:37 | Outpatient (BNVA) | payer MEDICARE, OTHER, SELFPAY | PROVIDERS: PCP Family Medicine; Visit Provider Family Medicine | DX: I10 Essential (primary) hypertension (principal); E11.9 Type 2 diabetes mellitus without complications; N13.9 Obstructive and reflux uropathy, unspecified | CPT/HCPCS: 80053; 82607; 83036; 85025 ==

== ENCOUNTER → 2024-03-12 09:15 | Outpatient (BNVA) | payer MEDICARE, OTHER, SELFPAY | PROVIDERS: PCP Family Medicine; Visit Provider Internal Medicine Pulmonary Disease | DX: D86.0 Sarcoidosis of lung (principal) | CPT/HCPCS: 99214 ==

== ENCOUNTER → 2024-03-20 13:10 | Outpatient (BNVA) | payer MEDICARE, OTHER, SELFPAY | PROVIDERS: PCP Family Medicine; Visit Provider Nurse Practitioner Family | DX: L57.0 Actinic keratosis (principal); L82.1 Other seborrheic keratosis; L02.821 Furuncle of head [any part, except face]; I87.2 Venous insufficiency (chronic) (peripheral); L21.8 Other seborrheic dermatitis; L81.4 Other melanin hyperpigmentation; D22.5 Melanocytic nevi of trunk; L85.3 Xerosis cutis; L57.8 Other skin changes due to chronic exposure to nonionizing radiation; Z85.828 Personal history of other malignant neoplasm of skin | CPT/HCPCS: 17000; 99214 ==

== ENCOUNTER → 2024-07-07 09:51 | Outpatient (BNVA) | payer MEDICARE, OTHER, SELFPAY | PROVIDERS: PCP Family Medicine; Visit Provider Family Medicine | DX: I10 Essential (primary) hypertension (principal); E11.9 Type 2 diabetes mellitus without complications; D86.0 Sarcoidosis of lung | CPT/HCPCS: 80053; 80061; 83036; 85025 ==

== ENCOUNTER → 2024-07-08 10:30 | Outpatient (BNVA) | payer MEDICARE, OTHER, SELFPAY | PROVIDERS: PCP Family Medicine; Visit Provider Nurse Practitioner Family | DX: L82.1 Other seborrheic keratosis (principal); L02.821 Furuncle of head [any part, except face]; L21.8 Other seborrheic dermatitis; L81.4 Other melanin hyperpigmentation; D22.5 Melanocytic nevi of trunk; L85.3 Xerosis cutis; L57.8 Other skin changes due to chronic exposure to nonionizing radiation; L57.0 Actinic keratosis; D48.5 Neoplasm of uncertain behavior of skin; Z85.828 Personal history of other malignant neoplasm of skin | CPT/HCPCS: 11102; 17000; 99214 ==

== ENCOUNTER → 2024-07-17 09:22 | Outpatient (BNVA) | payer MEDICARE, OTHER, SELFPAY | PROVIDERS: PCP Family Medicine; Visit Provider Dermatology | DX: C44.319 Basal cell carcinoma of skin of other parts of face (principal) | CPT/HCPCS: 13132; 17311 ==

== ENCOUNTER → 2024-11-03 12:57 | Outpatient (BNVA) | payer MEDICARE, OTHER, SELFPAY | PROVIDERS: PCP Family Medicine; Visit Provider Internal Medicine | DX: D86.0 Sarcoidosis of lung (principal); I10 Essential (primary) hypertension; E11.9 Type 2 diabetes mellitus without complications; Z79.84 Long term (current) use of oral hypoglycemic drugs | CPT/HCPCS: 99214 ==

== ENCOUNTER → 2024-12-10 09:49 | Outpatient (BNVA) | payer MEDICARE, OTHER, SELFPAY | PROVIDERS: PCP Family Medicine; Visit Provider Nurse Practitioner Family | DX: L02.12 Furuncle of neck (principal); L81.7 Pigmented purpuric dermatosis; Z08 Encounter for follow-up examination after completed treatment for malignant neoplasm; Z85.828 Personal history of other malignant neoplasm of skin; D48.5 Neoplasm of uncertain behavior of skin; L57.0 Actinic keratosis | CPT/HCPCS: 11102; 17000; 99214 ==

== ENCOUNTER → 2024-12-22 09:11 | Outpatient (BNVA) | payer MEDICARE, OTHER, SELFPAY | PROVIDERS: PCP Family Medicine; Visit Provider Family Medicine | DX: I10 Essential (primary) hypertension (principal); E11.9 Type 2 diabetes mellitus without complications; D86.0 Sarcoidosis of lung | CPT/HCPCS: 80053; 80061; 83036; 85025 ==

== ENCOUNTER → 2025-01-22 15:23 | Outpatient (BNVA) | payer MEDICARE, OTHER, SELFPAY | PROVIDERS: PCP Family Medicine; Visit Provider Nurse Practitioner Family | DX: D04.4 Carcinoma in situ of skin of scalp and neck (principal); D04.39 Carcinoma in situ of skin of other parts of face; L72.0 Epidermal cyst; R58 Hemorrhage, not elsewhere classified; R20.8 Other disturbances of skin sensation; L70.0 Acne vulgaris; L73.8 Other specified follicular disorders; Z08 Encounter for follow-up examination after completed treatment for malignant neoplasm; Z85.828 Personal history of other malignant neoplasm of skin | CPT/HCPCS: 10060; 99214 ==

== ENCOUNTER → 2025-02-23 14:29 | Outpatient (BNVA) | payer MEDICARE, OTHER, SELFPAY | PROVIDERS: PCP Family Medicine; Visit Provider Dermatology | DX: D04.4 Carcinoma in situ of skin of scalp and neck (principal); D04.39 Carcinoma in situ of skin of other parts of face; L72.0 Epidermal cyst; L82.1 Other seborrheic keratosis; Z08 Encounter for follow-up examination after completed treatment for malignant neoplasm; Z85.828 Personal history of other malignant neoplasm of skin; D48.5 Neoplasm of uncertain behavior of skin; L57.0 Actinic keratosis | CPT/HCPCS: 11102; 17000; 99213 ==

== ENCOUNTER → 2025-04-06 11:17 | Outpatient (BNVA) | payer MEDICARE, OTHER, SELFPAY | PROVIDERS: PCP Family Medicine; Visit Provider Family Medicine | DX: E11.9 Type 2 diabetes mellitus without complications (principal) | CPT/HCPCS: 83036 ==

== ENCOUNTER → 2025-07-09 13:51 | Outpatient (BNVA) | payer MEDICARE, OTHER, SELFPAY | PROVIDERS: PCP Family Medicine; Visit Provider Nurse Practitioner Family | DX: D23.39 Other benign neoplasm of skin of other parts of face (principal); L81.7 Pigmented purpuric dermatosis; L57.8 Other skin changes due to chronic exposure to nonionizing radiation; S70.361A Insect bite (nonvenomous), right thigh, initial encounter; D18.01 Hemangioma of skin and subcutaneous tissue; Z08 Encounter for follow-up examination after completed treatment for malignant neoplasm; Z85.828 Personal history of other malignant neoplasm of skin; D48.5 Neoplasm of uncertain behavior of skin | CPT/HCPCS: 17000; 69100; 99213 ==

== ENCOUNTER → 2025-08-12 12:45 | Outpatient (BNVA) | payer MEDICARE, OTHER, SELFPAY | PROVIDERS: PCP Family Medicine; Visit Provider Dermatology | DX: L73.8 Other specified follicular disorders (principal); Z08 Encounter for follow-up examination after completed treatment for malignant neoplasm; Z85.828 Personal history of other malignant neoplasm of skin; C44.42 Squamous cell carcinoma of skin of scalp and neck; C44.229 Squamous cell carcinoma of skin of left ear and external auricular canal | CPT/HCPCS: 14020; 17281; 17311; 99212 ==

== ENCOUNTER → 2025-08-13 10:05 | Outpatient (BNVA) | payer MEDICARE, OTHER, SELFPAY | PROVIDERS: PCP Family Medicine; Visit Provider Family Medicine | DX: E11.9 Type 2 diabetes mellitus without complications (principal); I10 Essential (primary) hypertension; N13.9 Obstructive and reflux uropathy, unspecified; N40.0 Benign prostatic hyperplasia without lower urinary tract symptoms; D86.0 Sarcoidosis of lung | CPT/HCPCS: 80053; 80061; 82607; 83036; 85025; G0103 ==

== ENCOUNTER → 2025-11-03 12:37 | Outpatient (BNVA) | payer MEDICARE, OTHER, SELFPAY | PROVIDERS: PCP Family Medicine; Visit Provider Internal Medicine | DX: I10 Essential (primary) hypertension (principal) | CPT/HCPCS: 99213 ==